=== PATIENT | male | born 1965 | race American Indian/Alaskan Native ===

== ENCOUNTER 2017-09-11 15:08 | Emergency (ER) | payer MEDICAID, OTHER ==
[2017-09-11 15:09] VITALS: BMI 20.9
[2017-09-11 15:31] VITALS: RESP 18
[2017-09-11] MEDS ORDERED: Sodium Chloride 0.9% 1,000 ML IV ONE (15:41)
--- NOTE | 2017-09-11 16:01 | C.PDOC ---
History Of Present Illness <Sylvia Law - Last Filed: 09/11/17 18:37> <Alban Durán M - Last Filed: 09/12/17 07:38> 52 y/o male with history of chronic ETOH abuse presents to ED with c/o right sided chest pain developed [employer]. Patient states he was at park drinking when symptoms developed. Notes he was diagnosed with rib fractures s/p fall on same side last month. Not new trauma. Patient denies sob, nausea, vomiting, cough, fever, change in sensation or any other complaints at this time. (Sylvia Law) History Per: Patient History/Exam Limitations: no limitations Onset/Duration Of Symptoms: Hrs Current Symptoms Are (Timing): Still Present Suicide/Self Injury Attempted (Context): None Modifying Factor(s): Alcohol <Sylvia Law - Last Filed: 09/11/17 18:37> <Alban Durán M - Last Filed: 09/12/17 07:38> Time Seen by Provider: 09/11/17 15:14 Chief Complaint (Nursing): Substance Abuse Past Medical History Reviewed: Historical Data, Nursing Documentation, Vital Signs - Medical History PMH: No Chronic Diseases Surgical History: No Surg Hx Family History: States: No Known Family Hx - Social History Hx Tobacco Use: Yes Hx Alcohol Use: Yes Hx Substance Use: No - Immunization History Hx Tetanus Toxoid Vaccination: No Hx Influenza Vaccination: No Hx Pneumococcal Vaccination: No <Sylvia Law - Last Filed: 09/11/17 18:37> Vital Signs: Last Vital Signs Temp 98.4 F 09/11/17 16:52 Pulse 104 H 09/11/17 16:52 Resp 18 09/11/17 16:52 BP 131/83 09/11/17 16:52 Pulse Ox 94 L 09/11/17 18:40 Review Of Systems Constitutional: Negative for: Fever, Chills Cardiovascular: Positive for: Chest Pain Respiratory: Negative for: Cough, Shortness of Breath Gastrointestinal: Negative for: Nausea, Vomiting Skin: Negative for: Rash <Sylvia Law - Last Filed: 09/11/17 18:37> Physical Exam - Physical Exam Appears: Non-toxic, No Acute Distress, Unkempt Skin: Warm, Dry, No Rash Head: Atraumatic, Normacephalic Eye(s): bilateral: Normal Inspection, EOMI Nose: Normal Oral Mucosa: Moist Neck: Normal ROM, Supple Chest: Symmetrical, Tenderness (Reproducible anterior right chest wall) Cardiovascular: Rhythm Regular Respiratory: Normal Breath Sounds, No Rales, No Rhonchi, No Wheezing Gastrointestinal/Abdominal: Soft, Tenderness (Epigastric), No Guarding, No Rebound Back: No CVA Tenderness Extremity: Normal ROM, Capillary Refill (<2 seconds) Neurological/Psych: Oriented x3, Normal Speech, Normal Cognition <Sylvia Law - Last Filed: 09/11/17 18:37> ED Course And Treatment - Laboratory Results Result Diagrams: 09/11/17 16:02 09/11/17 16:02 ECG: Interpreted By Me, Viewed By Me ECG Rhythm: Sinus Tachycardia Rate From EC (bpm) O2 Sat by Pulse Oximetry: 94 (ra) Pulse Ox Interpretation: Normal Progress Note: D/W patient for admission though Patient refused noting he has work tomorrow. Will re-evaluate at sobriety. Pt observed pending sobriety. Pt eloped the ER without discharge. Case discussed with Dr Durán, agreed up plan and treatment. <Sylvia Law - Last Filed: 09/11/17 18:37> - Laboratory Results Result Diagrams: 09/11/17 16:02 09/11/17 16:02 <Alban Durán - Last Filed: 09/12/17 07:38> Medical Decision Making <Sylvia Law - Last Filed: 09/11/17 18:37> <Alban Durán - Last Filed: 09/12/17 07:38> Medical Decision Making: Case discussed with PA, I did not evaluate patient although I was available for consult. PA instructed to phone authorities as patient alcohol level was elevated. I do not see further documentation as to result of discussion with police. I was informed patient eloped from department. (Alban Durán) Disposition - Disposition Disposition Time: 16:43 <Sylvia Law - Last Filed: 09/11/17 18:37> <Alban Durán - Last Filed: 09/12/17 07:38> - Disposition Disposition: ELOPEMENT - ER ONLY Condition: STABLE Additional Instructions: If you are interested in detox, call [phone] for bed availability. Return to ER if symptoms persist or worsen. Instructions: Chest Pain (DC) Forms: [facility] (Bermudian), (AMA) Informed Refusal - Clinical Impression Clinical Impression: Alcohol abuse, Chest pain - PA / MINING TECHNICIAN / Resident Statement MD/DO has reviewed & agrees with the documentation as recorded. - Scribe Statement The provider has reviewed the documentation as recorded by the Scribe <Sylvia Law - Last Filed: 09/11/17 18:37> <Alban Durán - Last Filed: 09/12/17 07:38> - Scribe Statement Freddy Nicholas All medical record entries made by the Scribe were at my direction and personally dictated by me. I have reviewed the chart and agree that the record accurately reflects my personal performance of the history, physical exam, medical decision making, and the department course for this patient. I have also personally directed, reviewed, and agree with the discharge instructions and disposition. (Sylvia Law)
[2017-09-11 16:09] LABS: BASO # 0.1 K/uL (0.0-0.2); BASO % 1.2 % (0.0-2.0); EOS # 0.1 K/uL (0.0-0.7); EOS % 1.6 % (0.0-4.0); HEMOGLOBIN 9.9 g/dL (12.0-18.0); LYMPH # 1.3 K/uL (1.0-4.3); LYMPH % 17.6 % (20.0-40.0); MEAN CELL VOLUME 71.7 fL (80.0-94.0); MEAN CORPUSCULAR HEMOGLOBIN 23.2 pg (27.0-31.0); MEAN CORPUSCULAR HGB CONC 32.3 g/dL (33.0-37.0); MEAN PLATELET VOLUME 8.3 fL (7.2-11.7); MONO # 0.6 K/uL (0.0-0.8); MONO % 7.5 % (0.0-10.0); NEUT # 5.5 K/uL (1.8-7.0); NEUT % 72.1 % (50.0-75.0); RBC 4.29 Mil/uL (4.40-5.90); RED CELL DISTRIBUTION WIDTH 22.9 % (11.5-14.5); WHITE BLOOD COUNT 7.6 K/uL (4.8-10.8)
[2017-09-11 16:20] LABS: URINE BILIRUBIN NEGATIVE (NEGATIVE); URINE BLOOD NEGATIVE (NEGATIVE); URINE CLARITY Clear (Clear); URINE COLOR Straw (YELLOW); URINE GLUCOSE (UA) NORMAL (Normal); URINE LEUKOCYTE ESTERASE NEG Leu/uL (Negative); URINE PROTEIN 1+ mg/dL (NEGATIVE); URINE UROBILINOGEN NORMAL mg/dL (0.2-1.0)
[2017-09-11 16:28] LABS: ALB/GLOB RATIO 1.3 (1.0-2.1); ALBUMIN 4.3 g/dL (3.5-5.0); ALT/SGPT 72 U/L (21-72); AST/SGOT 149 U/L (17-59); BLOOD UREA NITROGEN 6 mg/dL (9-20); CALCIUM 8.8 mg/dl (8.6-10.4); GFR AFRICAN-AMERICAN > 60; GFR NON-AFRICAN AMERICAN > 60; LIPASE 322 U/L (23-300)
--- NOTE | 2017-09-11 16:31 | RAD ---
HISTORY: COMPARISON: 07/24/2017. TECHNIQUE: Chest PA and lateral FINDINGS: LINES AND TUBES: None. LUNG AND PLEURA: The lungs are well inflated and clear. HEART AND MEDIASTINUM: The heart is not enlarged. The hilar and mediastinal contours are within normal limits. SKELETAL STRUCTURES: The bony structures are within normal limits for the patient's age. VISUALIZED UPPER ABDOMEN: Normal. OTHER FINDINGS: None. IMPRESSION: No active pulmonary disease.
[2017-09-11 16:36] LABS: CK-MB 1.55 ng/mL (0.0-3.38)
[2017-09-11 16:42] LABS: CK-MB 1.53 ng/mL (0.0-3.38)
[2017-09-11 16:53] VITALS: BP 131/83; PULSE 104; TEMP 98.4
[2017-09-11 17:05] LABS: BARBITURATES, UR NEGATIVE (NEGATIVE); BENZODIAZEPINES, UR NEGATIVE (NEGATIVE); OPIATES, UR NEGATIVE (NEGATIVE); PHENCYCLIDINE, UR NEGATIVE (NEGATIVE)
[2017-09-11 17:40] VITALS: O2SAT 94
--- NOTE | 2017-09-12 21:50 | CARD ---
APPROVED REPORT EKG Measurement Heart [id number] [place] 160P52 [id number] <Conclusion> Sinus tachycardia Possible Left atrial enlargement Borderline ECG
== END 2017-09-11 17:56 | disposition left against medical advice (07) ==
LOC: C.ER 15:08
DX: F10.10 Alcohol abuse, uncomplicated (principal); Y90.8 Blood alcohol level of 240 mg/100 ml or more; R07.9 Chest pain, unspecified
CPT/HCPCS: 71046; 80053; 81001; 82550; 82553; 83690; 84484; 85025; 85378; 93005; 96361; 96374; 99284; C9113; G0480; J7040

== ENCOUNTER 2017-12-04 21:08 | Emergency (ER) | payer OTHER ==
[2017-12-04 21:08] VITALS: BMI 20.9
[2017-12-04 21:19] VITALS: BP 136/91; PULSE 88; TEMP 97.4; O2SAT 96
--- NOTE | 2017-12-04 22:12 | C.PDOC ---
History Of Present Illness 52 year old male brought in by EMS after being found intoxicated in counts include 234 beds at the [facility]. Patient admits to ETOH use tonight. Patient has not voiced any complaints at this time. Time Seen by Provider: 12/04/17 21:17 Chief Complaint (Nursing): Substance Abuse History Per: Patient, EMS History/Exam Limitations: no limitations Onset/Duration Of Symptoms: Hrs Current Symptoms Are (Timing): Still Present Suicide/Self Injury Attempted (Context): None Modifying Factor(s): Alcohol Involuntary Hold By: None Recent travel outside of the [place]: No Past Medical History Reviewed: Historical Data, Nursing Documentation, Vital Signs Vital Signs: Last Vital Signs Temp 97.4 F L 12/04/17 21:14 Pulse 88 12/04/17 21:14 Resp 20 12/04/17 22:33 BP 136/91 H 12/04/17 21:14 Pulse Ox 96 12/05/17 00:14 Family History: States: Unknown Family Hx - Social History Hx Tobacco Use: Yes Hx Alcohol Use: Yes Hx Substance Use: No - Immunization History Hx Tetanus Toxoid Vaccination: No Hx Influenza Vaccination: No Hx Pneumococcal Vaccination: No Review Of Systems Except As Marked, All Systems Reviewed And Found Negative. Constitutional: Positive for: Other (ETOH intoxication) Physical Exam - Physical Exam Appears: Non-toxic, Other (ETOH on breath, no sign of injury) Skin: Normal Color, Warm, Dry Head: Atraumatic, Normacephalic Eye(s): bilateral: Normal Inspection Oral Mucosa: Moist Neck: Normal, Supple Chest: Symmetrical, No Tenderness Cardiovascular: Rhythm Regular Respiratory: Normal Breath Sounds, No Rales, No Rhonchi, No Wheezing Gastrointestinal/Abdominal: Soft, No Tenderness Neurological/Psych: Oriented x3, Normal Speech ED Course And Treatment O2 Sat by Pulse Oximetry: 96 (Room air) Pulse Ox Interpretation: Normal Medical Decision Making Medical Decision Making: Patient refused fingerstick. 1245 am - patient ambulatory with steady gait. patient discharged home and advised to follow up with medical clinic within 2 days advised to decrease alcohol use. Disposition Counseled Patient/Family Regarding: Studies Performed, Diagnosis - Disposition Referrals: [facility] [Outside] Disposition: HOME/ ROUTINE Disposition Time: 00:45 Condition: STABLE Additional Instructions: follow up with medical clinic within 2 days call to make an appointment decrease your alcohol use return to ER if symptoms worsens or progress Instructions: Alcohol Abuse and Alcoholism (DC) Forms: [facility] (Polish), General Discharge Instructions - Clinical Impression Clinical Impression: Alcohol abuse - Scribe Statement The provider has reviewed the documentation as recorded by the Scribera Pompa All medical record entries made by the Scribe were at my direction and personally dictated by me. I have reviewed the chart and agree that the record accurately reflects my personal performance of the history, physical exam, medical decision making, and the department course for this patient. I have also personally directed, reviewed, and agree with the discharge instructions and disposition.
[2017-12-04 22:34] VITALS: RESP 20
== END 2017-12-05 00:32 | disposition home or self-care (01) ==
LOC: C.ER 21:08
DX: F10.10 Alcohol abuse, uncomplicated (principal)

== ENCOUNTER 2017-12-13 21:33 | Emergency (ER) | payer SELFPAY ==
[2017-12-13 21:33] VITALS: BMI 20.9
[2017-12-13 21:43] VITALS: BP 100/69; PULSE 87; RESP 18; TEMP 98.2; O2SAT 100
--- NOTE | 2017-12-13 21:49 | C.PDOC ---
History Of Present Illness 52 year old male is brought into the emergency department by ambulance for public intoxication at [facility]. Patient is a well-known local homeless alcoholic, with multiple recent evaluations for the same issues with the most recent one being on 12-04-17. Time Seen by Provider: 12/13/17 21:43 Chief Complaint (Nursing): Substance Abuse History Per: Patient History/Exam Limitations: no limitations Onset/Duration Of Symptoms: Hrs Current Symptoms Are (Timing): Still Present Modifying Factor(s): Alcohol Additional History Per: EMS Past Medical History Reviewed: Historical Data, Nursing Documentation, Vital Signs Vital Signs: Last Vital Signs Temp 98.2 F 12/13/17 21:35 Pulse 87 12/13/17 21:35 Resp 18 12/13/17 21:35 BP 100/69 12/13/17 21:35 Pulse Ox 100 12/13/17 21:48 - Medical History PMH: No Chronic Diseases Surgical History: No Surg Hx Family History: States: No Known Family Hx - Social History Hx Tobacco Use: Yes Hx Alcohol Use: Yes Hx Substance Use: No - Immunization History Hx Tetanus Toxoid Vaccination: No Hx Influenza Vaccination: No Hx Pneumococcal Vaccination: No Review Of Systems Except As Marked, All Systems Reviewed And Found Negative. Neurological: Positive for: Altered Mental Status (alcohol intoxication) Physical Exam - Physical Exam Appears: Non-toxic, Agitated (foul-mouthed, argumentative) Skin: Warm, Dry Head: Atraumatic, Normacephalic Eye(s): bilateral: Normal Inspection Nose: Normal Oral Mucosa: Moist, Other (alcohol on breath) Neck: Normal, Supple Chest: Symmetrical, No Tenderness Cardiovascular: Rhythm Regular, No Murmur Respiratory: Normal Breath Sounds, No Rales, No Rhonchi, No Wheezing Gastrointestinal/Abdominal: Normal Exam, Soft, No Tenderness, No Guarding, No Rebound Neurological/Psych: Oriented x3, Normal Speech, Normal Cognition ED Course And Treatment O2 Sat by Pulse Oximetry: 100 (RA) Pulse Ox Interpretation: Normal Medical Decision Making Medical Decision Making: alcohol abuse no injuries glu 105 wants d/c stable for d/c. Disposition Doctor Will See Patient In The: Office Counseled Patient/Family Regarding: Studies Performed, Diagnosis - Disposition Referrals: Alcoholics Anonymous [Outside] [facility] [Outside] [facility] [Outside] [facility] [Outside] Disposition: HOME/ ROUTINE Disposition Time: 21:48 Condition: GOOD Additional Instructions: seek nightly senior care placement Seek AA Seek Detox- numbers below. Instructions: Alcohol Abuse and Alcoholism (DC) Forms: [facility] (Prydeinig) - Clinical Impression Clinical Impression: Alcohol abuse - Scribe Statement The provider has reviewed the documentation as recorded by the Scribe (Gilberto Guillaume) Provider Attestation: All medical record entries made by the Scribe were at my direction and personally dictated by me. I have reviewed the chart and agree that the record accurately reflects my personal performance of the history, physical exam, medical decision making, and the department course for this patient. I have also personally directed, reviewed, and agree with the discharge instructions and disposition.
== END 2017-12-13 22:02 | disposition home or self-care (01) ==
LOC: C.ER 21:33
DX: F10.129 Alcohol abuse with intoxication, unspecified (principal); Y90.9 Presence of alcohol in blood, level not specified; Z59.0 Homelessness

== ENCOUNTER 2018-02-16 05:32 | Emergency (ER) | payer OTHER ==
[2018-02-16 05:32] VITALS: BMI 20.9
[2018-02-16] MEDS ORDERED: Sucralfate 1 gm/10 ml Oral Susp UD PO STA (05:56)
--- NOTE | 2018-02-16 05:57 | C.PDOC ---
History Of Present Illness 52 year old male presents to the ED c/o epigastric and substernal chest pain that started tonight. Patient is also requesting alcohol detox. Patient denies SI/HI, hallucinations, SOB, palpitations, weakness, numbness. Chief Complaint (Nursing): Chest Pain History Per: Patient History/Exam Limitations: no limitations Onset/Duration Of Symptoms: Hrs Current Symptoms Are (Timing): Still Present Quality: "Pain" Recent travel outside of the [place]: No Additional History Per: Patient Past Medical History Reviewed: Historical Data, Nursing Documentation, Vital Signs Vital Signs: Last Vital Signs Temp 98.7 F 02/16/18 05:39 Pulse 91 H 02/16/18 05:39 Resp 20 02/16/18 05:39 BP 180/98 H 02/16/18 05:39 Pulse Ox 95 02/16/18 05:39 - Medical History PMH: No Chronic Diseases Surgical History: No Surg Hx Family History: States: Unknown Family Hx - Social History Hx Tobacco Use: Yes Hx Alcohol Use: Yes Hx Substance Use: No - Immunization History Hx Tetanus Toxoid Vaccination: No Hx Influenza Vaccination: No Hx Pneumococcal Vaccination: No Review Of Systems Constitutional: Negative for: Fever, Chills Cardiovascular: Positive for: Chest Pain. Negative for: Palpitations Respiratory: Negative for: Shortness of Breath Gastrointestinal: Positive for: Abdominal Pain. Negative for: Nausea, Vomiting Psych: Negative for: Depression, Suicidal ideation Physical Exam - Physical Exam Appears: Non-toxic, No Acute Distress, Other (AOB) Skin: Normal Color, Warm, Dry Head: Atraumatic, Normacephalic Eye(s): bilateral: Normal Inspection Neck: Normal ROM, Supple Chest: Symmetrical, Tenderness (substernal ) Cardiovascular: Rhythm Regular Respiratory: Normal Breath Sounds, No Rales, No Rhonchi, No Wheezing Gastrointestinal/Abdominal: Soft, Tenderness (epigastric), No Guarding, No Rebound, Other (pressure at epigastric area causes chest pain) Extremity: Normal ROM, No Tenderness, No Swelling Neurological/Psych: Oriented x3, Normal Speech Gait: Steady ED Course And Treatment - Laboratory Results Result Diagrams: 02/16/18 06:05 02/16/18 06:05 ECG: Interpreted By Me, Viewed By Me ECG Rhythm: Sinus Rhythm ECG Interpretation: Normal, No Acute Changes Interpretation Of ECG: NSR, normal tracings. Rate From EC O2 Sat by Pulse Oximetry: 95 (ON RA) Pulse Ox Interpretation: Normal Medical Decision Making Medical Decision Making: Plan: * EKG * Labs * CXR * Carafate 1 gm PO * pepcid 20 mg IVP Disposition Counseled Patient/Family Regarding: Diagnosis - Disposition Disposition Time: 07:00 Condition: STABLE Forms: [facility] (Omani) - Clinical Impression Clinical Impression: Epigastric pain, Gastritis - Scribe Statement The provider has reviewed the documentation as recorded by the Scribe Alejandro Sands All medical record entries made by the Scribe were at my direction and personally dictated by me. I have reviewed the chart and agree that the record accurately reflects my personal performance of the history, physical exam, medical decision making, and the department course for this patient. I have also personally directed, reviewed, and agree with the discharge instructions and disposition.
[2018-02-16] MEDS ORDERED: Sucralfate 1 gm/10 ml Oral Susp UD ONE (06:07)
[2018-02-16 06:24] LABS: BASO # 0.1 K/uL (0.0-0.2); BASO % 1.5 % (0.0-2.0); EOS # 0.2 K/uL (0.0-0.7); EOS % 4.5 % (0.0-4.0); HEMOGLOBIN 9.8 g/dL (12.0-18.0); LYMPH # 0.9 K/uL (1.0-4.3); LYMPH % 24.3 % (20.0-40.0); MEAN CELL VOLUME 78.8 fL (80.0-94.0); MEAN CORPUSCULAR HEMOGLOBIN 25.7 pg (27.0-31.0); MEAN CORPUSCULAR HGB CONC 32.6 g/dL (33.0-37.0); MEAN PLATELET VOLUME 8.3 fL (7.2-11.7); MONO # 0.3 K/uL (0.0-0.8); MONO % 8.9 % (0.0-10.0); NEUT # 2.3 K/uL (1.8-7.0); NEUT % 60.8 % (50.0-75.0); NRBC % 0.1 % (0.0-2.0); RBC 3.8 Mil/uL (4.40-5.90); WHITE BLOOD COUNT 3.8 K/uL (4.8-10.8)
[2018-02-16 06:28] LABS: ALB/GLOB RATIO 1.6 (1.0-2.1); ALBUMIN 4.1 g/dL (3.5-5.0); ALT/SGPT 20 U/L (21-72); AST/SGOT 39 U/L (17-59); BLOOD UREA NITROGEN 6 mg/dL (9-20); CALCIUM 8.5 mg/dl (8.6-10.4); GFR NON-AFRICAN AMERICAN > 60; LIPASE 184 U/L (23-300)
--- NOTE | 2018-02-16 09:47 | RAD ---
HISTORY: Chest pain COMPARISON: 09/11/2017. TECHNIQUE: Chest PA and lateral FINDINGS: LINES AND TUBES: None. LUNG AND PLEURA: The lungs are well inflated and clear. No pleural effusion or pneumothorax. HEART AND MEDIASTINUM: The heart is not enlarged. The hilar and mediastinal contours are within normal limits. SKELETAL STRUCTURES: The bony structures are within normal limits for the patient's age. VISUALIZED UPPER ABDOMEN: Normal. OTHER FINDINGS: None. IMPRESSION: No active pulmonary disease.
[2018-02-16 10:00] LABS: CK-MB 1.72 ng/mL (0.0-3.38); TROPONIN I 0.017 ng/mL (0.00-0.120)
[2018-02-16 10:03] VITALS: RESP 18; TEMP 98
[2018-02-16 10:48] VITALS: BP 163/105; PULSE 69; O2SAT 98
--- NOTE | 2018-02-18 12:49 | CARD ---
APPROVED REPORT Date of service: 02/16/2018 EKG Measurement Heart [id number] <Conclusion> Normal sinus rhythm Normal ECG
== END 2018-02-16 10:48 | disposition home or self-care (01) ==
LOC: C.ER 05:32
DX: K29.70 Gastritis, unspecified, without bleeding (principal); R10.13 Epigastric pain

== ENCOUNTER 2018-03-29 22:55 | Emergency (ER) | payer SELFPAY ==
[2018-03-29 22:55] VITALS: BMI 20.9
--- NOTE | 2018-03-30 00:12 | C.PDOC ---
History Of Present Illness 52 y/o male patient presents to ED for alcohol intoxication. Patient is requesting a place to stay for the night. Patient denies any SI/HI or physical complaints at this time. Chief Complaint (Nursing): Substance Abuse History Per: Patient History/Exam Limitations: no limitations Onset/Duration Of Symptoms: Hrs Suicide/Self Injury Attempted (Context): None Modifying Factor(s): Alcohol Associated Symptoms: denies: Depression, Suicidal Thoughts, Suicidal Plan Past Medical History Reviewed: Historical Data, Nursing Documentation, Vital Signs Vital Signs: Last Vital Signs Temp 97.5 F L 03/29/18 23:37 Pulse 87 03/29/18 23:37 Resp 20 03/29/18 23:37 BP 160/92 H 03/29/18 23:37 Pulse Ox 96 03/29/18 23:37 - Medical History PMH: Diabetes Other Surgeries: Hx of surgeries Family History: States: No Known Family Hx - Social History Hx Tobacco Use: Yes Hx Alcohol Use: Yes Hx Substance Use: No - Immunization History Hx Tetanus Toxoid Vaccination: No Hx Influenza Vaccination: No Hx Pneumococcal Vaccination: No Review Of Systems Except As Marked, All Systems Reviewed And Found Negative. Constitutional: Positive for: Other (alcohol intoxication) Psych: Negative for: Depression, Suicidal ideation Physical Exam - Physical Exam Appears: Non-toxic, Other (alcohol smell on breath) Skin: Warm, Dry Head: Atraumatic, Normacephalic Eye(s): bilateral: Normal Inspection Nose: Normal Neck: Normal ROM, Supple Chest: Symmetrical Cardiovascular: Rhythm Regular Respiratory: Normal Breath Sounds, No Rales, No Rhonchi, No Wheezing Gastrointestinal/Abdominal: Soft, No Tenderness Extremity: Normal ROM Neurological/Psych: Oriented x3, Normal Speech Gait: Steady ED Course And Treatment O2 Sat by Pulse Oximetry: 96 (RA) Pulse Ox Interpretation: Normal Disposition Counseled Patient/Family Regarding: Diagnosis - Disposition Referrals: [facility] [Outside] Disposition: HOME/ ROUTINE Disposition Time: 05:51 Condition: STABLE Instructions: Alcohol Abuse and Alcoholism (DC) Forms: [facility] (Malagasy), Gen Discharge Inst Moldovan Print Language: MACEDONIAN - POA Present On Arrival: None - Clinical Impression Clinical Impression: Alcohol abuse - Scribe Statement The provider has reviewed the documentation as recorded by the Scribe Lula Lizarraga All medical record entries made by the Scribe were at my direction and personally dictated by me. I have reviewed the chart and agree that the record accurately reflects my personal performance of the history, physical exam, medical decision making, and the department course for this patient. I have also personally directed, reviewed, and agree with the discharge instructions and disposition.
[2018-03-30 06:12] VITALS: BP 156/94; PULSE 108; RESP 24; TEMP 97.3; O2SAT 95
== END 2018-03-30 06:03 | disposition home or self-care (01) ==
LOC: C.ER 22:55
DX: F10.129 Alcohol abuse with intoxication, unspecified (principal); Y90.9 Presence of alcohol in blood, level not specified

== ENCOUNTER 2018-07-15 01:16 | Emergency (ER) | payer SELFPAY ==
[2018-07-15 01:16] VITALS: BMI 20.9
--- NOTE | 2018-07-15 01:35 | C.PDOC ---
History Of Present Illness Patient presents with acute ETOH intoxication, requesting a place to spend the night. Denies any physical complaints at this time. Time Seen by Provider: 07/15/18 01:33 Chief Complaint (Nursing): Substance Abuse History Per: Patient History/Exam Limitations: no limitations Onset/Duration Of Symptoms: Hrs Current Symptoms Are (Timing): Still Present Suicide/Self Injury Attempted (Context): None Modifying Factor(s): Alcohol Severity: None Pain Scale Rating Of: 0 Associated Symptoms: denies: Depression, Suicidal Thoughts Involuntary Hold By: None Recent travel outside of the [place]: No Past Medical History Reviewed: Historical Data, Nursing Documentation, Vital Signs - Medical History PMH: Anemia, Diabetes - [facility] TRANSFUSE NONAUT RED BLOOD CELLS IN PERIPH VEIN, PERC (04/13/18) Family History: States: No Known Family Hx - Social History Hx Tobacco Use: Yes Hx Alcohol Use: Yes Hx Substance Use: No - Immunization History Hx Tetanus Toxoid Vaccination: No Hx Influenza Vaccination: No Hx Pneumococcal Vaccination: No Review Of Systems Constitutional: Negative for: Fever, Chills Cardiovascular: Negative for: Chest Pain, Palpitations Respiratory: Negative for: Cough, Shortness of Breath Gastrointestinal: Negative for: Nausea, Vomiting Neurological: Negative for: Weakness, Numbness Physical Exam - Physical Exam Appears: Non-toxic, Other (ETOH on breath, no sign of injury) Skin: Warm, Dry Head: Normacephalic Oral Mucosa: Moist Chest: Symmetrical, No Tenderness Cardiovascular: Rhythm Regular Respiratory: No Rales, No Rhonchi, No Wheezing Gastrointestinal/Abdominal: Soft, No Tenderness Neurological/Psych: Oriented x3 ED Course And Treatment O2 Sat by Pulse Oximetry: 97 Pulse Ox Interpretation: Normal Reevaluation Time: 05:55 Reassessment Condition: Improved Disposition Counseled Patient/Family Regarding: Studies Performed, Diagnosis, Need For Followup - Disposition Referrals: [facility] [Outside] Disposition: HOME/ ROUTINE Disposition Time: 01:34 Condition: FAIR Instructions: Alcohol Abuse and Alcoholism (DC) Forms: [facility] (German) - Clinical Impression Clinical Impression: Alcohol abuse, Alcohol intoxication - Scribe Statement The provider has reviewed the documentation as recorded by the Scribe Henry Pompa All medical record entries made by the Scribe were at my direction and personally dictated by me. I have reviewed the chart and agree that the record accurately reflects my personal performance of the history, physical exam, medical decision making, and the department course for this patient. I have also personally directed, reviewed, and agree with the discharge instructions and disposition.
[2018-07-15 05:31] VITALS: BP 135/80; PULSE 97; RESP 22; TEMP 98.9; O2SAT 97
== END 2018-07-15 06:06 | disposition home or self-care (01) ==
LOC: C.ER 01:16
DX: F10.129 Alcohol abuse with intoxication, unspecified (principal); E11.9 Type 2 diabetes mellitus without complications